=== PATIENT | male | born 1985 | race Asian ===

== ENCOUNTER 2019-08-04 01:44 | Emergency (ER) | payer OTHER ==
[2019-08-04 02:12] LABS: BASOPHILS % (AUTO) 0.7 %; EOSINOPHILS # (AUTO) 0.3 10^3/uL (0.0-0.7); EOSINOPHILS % (AUTO) 4.8 %; HGB - HEMOGLOBIN 16.2 g/dL (14.0-18.0); LYMPHOCYTES # (AUTO) 2.5 10^3/uL (1.5-3.5); LYMPHOCYTES % (AUTO) 42.5 %; MEAN CORPUSCULAR HEMOGLOBIN 30.4 pg (27.0-31.0); MEAN CORPUSCULAR HGB CONC 34.4 g/dL (32.0-36.0); MEAN CORPUSCULAR VOLUME 88.4 fL (80.0-94.0); MONOCYTES # (AUTO) 0.6 10^3/uL (0.0-1.0); MONOCYTES % (AUTO) 9.5 %; NEUTROPHILS # (AUTO) 2.5 10^3/uL (1.5-6.6); NEUTROPHILS % (AUTO) 42.3 %; PLT - PLATELET COUNT 216 10^3/uL (130-450); RED BLOOD COUNT 5.33 10^6/uL (4.70-6.10); RED CELL DISTRIBUTION WIDTH 11.9 % (12.0-15.0); WHITE BLOOD COUNT 5.9 x10^3/uL (4.8-10.8)
[2019-08-04 02:21] LABS: ALBUMIN 4.5 g/dL (3.2-5.5); ALBUMIN/GLOBULIN RATIO 1.4 (1.0-2.2); BILIRUBIN,TOTAL 0.7 mg/dL (0.2-1.0); CALCIUM 9.2 mg/dL (8.5-10.3); CREATININE 1.5 mg/dL (0.6-1.2); TOTAL PROTEIN 7.7 g/dL (6.7-8.2)
--- NOTE | 2019-08-04 02:38 | ED Physician Documentation ---
PD HPI FOCAL NEURO - Stated complaint Stated Complaint: CP/NUMB L SIDE OF BODY - Chief complaint Chief Complaint: Neuro - History obtained from History obtained from: Patient - History of Present Illness Timing - onset: How many minutes ago (45) Timing - duration: Minutes (45) Timing - details: Abrupt onset, Now resolved (Symptoms are mostly resolved with just some mild chest discomfort but on route and arriving to the ER he is developing a little bit of a headache.) Severity of deficit: Moderate (He states he was resting and developed onset of symptoms in which he could hear his talking and wanted to respond but felt he was unable to talk. This lasted for a couple of minutes. He then developed feeling of a left-sided chest pain which he described as sharp and aching in the left upper chest radiating to the left neck and associated with onset of weakness and numbness of the left arm and leg and his says the left side of his face seemed a little droopy as well. This also lasted a few minutes and then decreased. He was feeling normal movement of his arm his leg on route to the hospital. He did develop some headache just on arrival here.) Weakness: Face, Arm, Leg, Left Numbness: No: Face, Arm, Leg Associated symptoms: Headache (developed moderate on arrival to ER, did not have [place] initially) Contributing factors: negative: Anticoagulated, Atrial fibrillation Baseline status: positive: A&OX3, ambulatory, indep Similar symptoms before: Has not had sx before (He does have history of intermittent migraines which he states feels different than the current headache that he has. 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 denies: Near syncope, Head injury, LOC PD PAST MEDICAL HISTORY - Past Medical History Past Medical History: No - Past Surgical History Past Surgical History: No - Present Medications Home Medications: Ambulatory Orders Medication Instructions Recorded Confirmed No Known Home Medications 12/29/19 12/29/19 - Allergies Allergies/Adverse Reactions: Allergies Allergy/AdvReac Type Severity Reaction Status Date / Time No Known Drug Allergies Allergy Verified 08/04/19 02:03 - Social History Does the pt smoke?: Yes Smoking Status: Current every day smoker Does the pt drink ETOH?: Yes ETOH Use: Liquor Does the pt have substance abuse?: No - Immunizations Immunizations are current?: Yes - POLST Patient has POLST: No PD ED PE NORMAL - Vitals Vital signs reviewed: Yes - General General: Alert and oriented X 3, No acute distress, Well developed/nourished - HEENT HEENT: PERRL, EOMI, Pharynx benign - Neck Neck: Supple, no meningeal sign, No adenopathy, No bruit - Cardiac Cardiac: RRR, No murmur - Respiratory Respiratory: Clear bilaterally - Back Back: No CVA TTP - Derm Derm: Normal color, Warm and dry - Extremities Extremities: No tenderness to palpate, Normal ROM s pain, No edema, No calf tenderness / cord - Neuro Neuro: Alert and oriented X 3, 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, No motor deficit, No sensory deficit, Normal speech Eye Opening: Spontaneous Motor: Obeys Commands Verbal: Oriented GCS Score: 15 Results - Vitals Vitals: Vital Signs - 24 hr 08/04/19 08/04/19 08/04/19 01:47 02:39 03:07 Temperature 36.6 C Heart Rate 67 78 64 Respiratory 14 20 21 Rate Blood Pressure 153/65 H 142/75 H 132/87 H Blood Pressure 143/91 H [Left] Blood Pressure 153/65 H [Right] O2 Saturation 99 98 97 08/04/19 08/04/19 08/04/19 03:44 04:25 04:45 Temperature Heart Rate 66 49 L 57 L Respiratory 15 16 18 Rate Blood Pressure 132/70 H 114/87 H 110/64 Blood Pressure [Left] Blood Pressure [Right] O2 Saturation 99 96 97 Oxygen O2 Source Room air - EKG (time done) 01:48 Rate: Rate (enter#) (65) Rhythm: NSR [place]: Normal Intervals: Normal [place] QRS: Normal Ischemia: Normal ST segments, ST elevation c/w repol. No: ST elevation c/w ischemia, ST depression - Labs Labs: Laboratory Tests 08/04/19 08/04/19 08/04/19 01:55 01:55 01:55 WBC 5.9 RBC 5.33 Hgb 16.2 Hct 47.1 MCV 88.4 MCH 30.4 MCHC 34.4 RDW 11.9 L Plt Count 216 MPV 9.0 Neut # (Auto) 2.5 Lymph # (Auto) 2.5 [place] # (Auto) 0.6 Eos # (Auto) 0.3 Baso # (Auto) 0.0 Absolute Nucleated RBC 0.00 Nucleated RBC % 0.0 ESR 3 Sodium 136 Potassium 3.6 Chloride 100 L Carbon Dioxide 29 Anion Gap 7.0 BUN 22 H Creatinine 1.5 H Estimated GFR (MDRD) 53 L Glucose 103 H Calcium 9.2 Total Bilirubin 0.7 AST 31 ALT 37 Alkaline Phosphatase 78 Troponin I High Sens Total Protein 7.7 Albumin 4.5 Globulin 3.2 Albumin/Globulin Ratio 1.4 Lipase 44 08/04/19 01:55 WBC RBC Hgb Hct MCV MCH MCHC RDW Plt Count MPV Neut # (Auto) Lymph # (Auto) [place] # (Auto) Eos # (Auto) Baso # (Auto) Absolute Nucleated RBC Nucleated RBC % ESR Sodium Potassium Chloride Carbon Dioxide Anion Gap BUN Creatinine Estimated GFR (MDRD) Glucose Calcium Total Bilirubin AST ALT Alkaline Phosphatase Troponin I High Sens 3.6 Total Protein Albumin Globulin Albumin/Globulin Ratio Lipase - Rads (name of study) chest CTA Radiology: Prelim report reviewed (no vascular abnormality. Lungs normal as well. ), See rad report neck angio Radiology: Prelim report reviewed, See rad report PD MEDICAL DECISION MAKING - ED course Complexity details: considered differential (Given the onset of chest pain into the neck associated with weakness of the arm and leg, I would be concern for vascular abnormality of the aorta and carotid. His symptoms have him proved and is now developing some mild headache without any neurologic symptoms. He does have history of migraines. Alternatively this could be a atypical complex migraine with hemiplegia. 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 No signs of aortic or carotid vascular abnormalities. No signs of heart attack. No signs of stroke. Without signs of a more significant process on you r tests and given your history of some migraines in the past, this may have been a unusual type of migraine called a hemiplegic migraine. Usual activity and stay well-hydrated. Follow-up with your primary care in the next few days. Return if recurrent symptoms. Discharge Date/Time: 08/04/19 05:10
[2019-08-04] MEDS ORDERED: SODIUM CHLORIDE 0.9% 1,000 ML IV ONE (02:54)
[2019-08-04] MEDS ORDERED: KETOROLAC 15 MG/ML VIAL IVP STA (02:54)
[2019-08-04] MEDS ORDERED: IOVERSOL 320 100 ML VIAL IVP ONE ×3 (03:03→03:59)
--- NOTE | 2019-08-04 04:25 | CT Report ---
Reason: chest pain Procedure Date: 08/04/2019 Accession Number: [id number] / [id number] Procedure: CT - ANGIO CHEST W/WO CPT Code: Final Report FULL RESULT: EXAM: CT ANGIOGRAM CHEST EXAM DATE: 08/04/2019 03:56 AM. CLINICAL HISTORY: Chest pain. Left-sided numbness with chest pain and neck pain which started at 1 AM. COMPARISON: None. TECHNIQUE: Axial helical multidetector images were acquired before and after intravenous contrast. IV contrast: Optiray 320 100 mL. Reconstructions: Coronal, sagittal, and 3D MIP reconstructions of the aorta. FINDINGS: Vascular Structures: Normal. No aneurysm, dissection, or significant atherosclerotic disease of the thoracic aorta. The visualized pulmonary arteries are within normal limits. Slight narrowing of the celiac axis at the level of the diaphragmatic bret. Lungs/Pleura: No consolidation, nodules, or edema. No effusions or pneumothorax. Mediastinum: Normal. No cardiac enlargement or adenopathy. Upper Abdomen: No acute abnormality. Other: None. IMPRESSION: 1. Normal appearance of the aorta. No pulmonary embolism. No acute pulmonary abnormality. 2. Narrowing of the celiac axis at the level of the diaphragmatic bret. This is incidental and could be transient. There is no critical stenosis of the SMA. RADIA
--- NOTE | 2019-08-04 04:39 | CT Report ---
Reason: L sided facial droop, L neck pain Procedure Date: 08/04/2019 Accession Number: [id number] / [id number] Procedure: CT - ANGIO NECK W CPT Code: Final Report FULL RESULT: EXAM: CT ANGIOGRAM NECK EXAM DATE: 08/04/2019 03:54 AM. CLINICAL HISTORY: L sided facial droop, L neck pain. COMPARISON: None. TECHNIQUE: Routine axial helical imaging was performed from the skull base through the aortic arch. Reconstructions: Routine multiplanar 3D MIP reconstructions. IV Contrast: OPTI 320 100ML. Evaluation of arterial stenosis is based on a NASCET method of measurement. In accordance with CT protocol optimization, one or more of the following dose reduction techniques were utilized for this exam: automated exposure control, adjustment of mA and/or KV based on patient size, or use of iterative reconstructive technique. FINDINGS: Aortic arch, origins of the great vessels, brachiocephalic in both subclavian arteries are patent and unremarkable. Right Carotid: The common carotid, internal carotid, and external carotid arteries are widely patent. No dissection, significant atherosclerotic plaque, or calcification identified. Left Carotid: The common carotid, internal carotid, and external carotid arteries are widely patent. No dissection, significant atherosclerotic plaque, or calcification identified. Vertebrals: Vertebral arteries are patent throughout the neck. Right is slightly larger than the left. Intracranial Circulation: Normal. No stenoses or aneurysms of the visualized vessels. Other: The bones, soft tissues, and lung apices show no significant abnormality. IMPRESSION: 1. No carotid or vertebral artery stenosis in the neck. No findings concerning for dissection. RADIA
[2019-08-04 04:46] VITALS: BP 110/64
== END 2019-08-04 05:10 | disposition home or self-care (01) ==
LOC: ED 01:44
DX: G43.409 Hemiplegic migraine, not intractable, without status migrainosus (principal); R07.2 Precordial pain; F17.200 Nicotine dependence, unspecified, uncomplicated
CPT/HCPCS: 36415; 70498; 71275; 80053; 83690; 84484; 85025; 85651; 93005; 96361; 96374; 99284; Q9967

== ENCOUNTER 2020-03-31 15:18 | Outpatient (CLI) | payer OTHER ==
[2020-03-31 15:59] VITALS: BP 100/62
--- NOTE | 2020-03-31 15:59 | SLEEP CARE CONSULTATION ---
Information from patient questionnaire entered by Rekha Moreau. I have reviewed and concur with the information entered by Rekha Moreau. This document represents the service I personally performed and the decisions made by me, Sussy Nash ARNP. History of Present Illness Service Date and Time: 03/31/2020 1518 Reason for Visit: New patient Chief Complaint: reports: Insomnia (hard to fall asleep), Unrefreshed sleep, Snoring, Excessive daytime sleepiness, Observed pauses in breathing ( tells him it sounds like he is gargling while sleeping), Fatigue, Frequent awakenings at night. denies: Other Date of Onset: 5 years Usual bedtime: [id number] Time it takes to fall asleep: 30-60 minutes Snores at night: Yes Observed to quit breathing while asleep: Yes Sleeps alone due to snoring: No Number of times waking at night: 3-4 Reasons for waking at night: reports: Choking, Snoring, Gasping for air. denies: Pain, Bathroom, Other Toss, Turn, or Twitch while sleeping: Yes ( states he moves around a lot) Recalls having dreams: No Usually gets out of bed at: 0430 Feels refreshed in the morning: No Morning headache: Yes (2-3 times a week; gone in an hour) Sleepy or fatigued during the day: Yes Ever fallen asleep while driving: Yes (couple times dozed off on long trips) Takes day naps: No Dreams during day naps: No Prior sleep studies: No Additional HPI information: I had the pleasure of seeing PILI JOHNSTON today regarding the possibility of him having a sleep disorder. His current complaints are loud snoring, unrefreshed sleep, fatigue, frequent night awakenings, insomnia and excessive daytime sleepiness. His father was diagnosed with sleep apnea but he is not sure if her was treated or not. He has a history of anxiety, depression and occasional heartburn. - Parasomnia Symptoms Ever been unable to move upon waking from sleep: Yes (once) Walks in sleep: No Talks in sleep: Yes Ever acted out dreams in sleep: No Ever felt weak in the knees when startled or emotional: No Bothered by creepy, crawly, restless sensations in legs: Yes (twice a week) Problems with memory or concentration: No Subjective Initial [place] Sleepiness Scale score: 17 Past Medical History Past Medical History: reports: Depression, Mood disorder (depression), GERD. 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 Patient is and lives in [place]. Have you smoked in the past 12 months: Yes Cigarettes per day (20/pack): 5 Years of smokin Smoking Pack Years: 3.4 Alcohol use: Yes Alcohol amount and frequency: 2, once/week Caffeine use: Yes Caffeine amount and frequency: once/day Family History Family history of sleep disordered breathing: Yes Family Hx Sleep Apnea: Father: Snoring (FRANCISCA dx, unsure if treated) Allergies and Home Medications Drug allergies reviewed: Yes (NKDA) Home medication list reviewed: Yes (none) Review of Systems Weight gain over past 5 years: 3 Cardiovascular: reports: chest pain (with some physical exertion; having appt with his doctor for evaluation). denies: high blood pressure, palpitations, irregular heart rate or pulse, leg or foot swelling, have to sleep sitting up Respiratory: denies: shortness of breath, chronic cough Gastrointestinal: reports: heartburn. denies: difficulty swallowing Urinary: denies: impotence Neurological: reports: headaches. denies: seizure, head trauma, speech dysfunction, gait or balance problems Psychiatric: reports: anxiety, depression. denies: Attention Deficit Hyperactivity, mood disorder, claustrophobia Ear/Nose/Throat: reports: nasal congestion, wisdom teeth removed (two removed). denies: sinus problems, nose bleeds, dry mouth/throat, hoarseness, injury to nose, tonsillectomy Endocrine: denies: thyroid disease Musculoskeletal: reports: back pain. denies: muscle pain or cramping, mobility problems Immunologic: denies: allergies to food or environment (pollen) Physical Exam Blood Pressure: 100/62 Cuff size: regular Heart Rate: 59 O2 Saturation: 97 Height: 5 ft 11 in Weight: 173 lb Body Mass Index: 24.1 BMI Classification: Healthy weight Neck circumference: 14.75 (inches) HEENT: No craniofacial malformation Nostrils: patent to airflow Turbinates: normal Septum: deviated right Mouth and throat: narrow oropharynx Soft palate: normal Hard palate: normal Uvula: normal Uvula visualization: 25% Mallampati Class III Tongue: normal in size Tonsils: 1+ Chin and jaw: normal size and position Neck: normal w/o lymphadenopathy or thyromegaly Heart: regular rate and rhythm Lungs: clear bilaterally Impression and Plan 1. Suspected Obstructive Sleep Apnea-Hypopnea Syndrome, as suggested by a history of loud and irregular snoring, observed cessation of breath while as leep, gasping or choking in sleep, morning headache, frequent awakening during the night, unrefreshed sleep, and excessive daytime sleepiness. Narrow oropharynx and obesity are common predisposing factors for obstructive sleep apnea-hypopnea syndrome. I recommend proceeding to polysomnography to confirm the diagnosis and to assess severity. If the patient has significant sleep disordered breathing, a manual CPAP titration study will also be performed to find the optimal treatment pressure. I informed the patient of what the sleep studies involve and after some discussion, obtained agreement to proceed. The pathophysiology of obstructive sleep apnea-hypopnea syndrome was discussed with the patient and health risks of cardiovascular and cerebrovascular disease if not treated. AAS brochure for obstructive sleep apnea-hypopnea syndrome given and reviewed. Risks of drowsy driving discussed in detail and patient advised to avoid long distance driving and to pulley maintainer at the first sign of drowsiness. Patient agreed to plan. * Schedule polysomnography +- manual CPAP titration study. * Avoid long distance driving or driving when feeling sleepy. * Avoid alcohol, sedative and muscle relaxant around bedtime. * Attempt to lose weight. * Review instructions provided by trained office staff on how to prepare for the sleep study. * Return for follow-up after sleep study completed. Visit Type: In Office Time Spent with Patient (minutes): 35 Provider Statement: I spent 100% of the Face to Face Visit with the patient with greater than 50% spent counseling the patient and coordination of care.
== END 2020-03-31 15:19 | disposition home or self-care (01) ==
LOC: SC 15:18
PROVIDERS: ATTEND Nurse Practitioner Family
DX: R06.83 Snoring (principal); G47.10 Hypersomnia, unspecified; G47.8 Other sleep disorders; R51 Headache; R06.81 Apnea, not elsewhere classified; F17.210 Nicotine dependence, cigarettes, uncomplicated
CPT/HCPCS: 99204; 99212

== ENCOUNTER 2020-05-04 19:30 | Outpatient (CLI) | payer OTHER | END 2020-05-04 19:31 | disposition home or self-care (01) | LOC: SC 19:30 | PROVIDERS: ATTEND Nurse Practitioner Family | DX: R06.83 Snoring (principal); G47.10 Hypersomnia, unspecified; G47.8 Other sleep disorders; R51 Headache; R06.81 Apnea, not elsewhere classified | CPT/HCPCS: 95810 ==

== ENCOUNTER 2020-05-13 15:16 | Outpatient (CLI) | payer OTHER ==
--- NOTE | 2020-05-13 15:32 | SLEEP CARE CONSULTATION ---
Information from patient questionnaire entered by Piter Pacheco. I have reviewed and concur with the information entered by Piter Pacheco. This document represents the service I personally performed and the decisions made by , Sussy Nash ARNP. History of Present Illness Service Date and Time: 05/13/2020 151 Initial [place] Sleepiness Scale score: 17 (in 2020) Current [place] Sleepiness Scale score: 15 Additional HPI information: PILI JOHNSTON returns for follow up and results of the recently performed polysomnography. The patient was informed of the following findings: no significant sleep disordered breathing. I explained the pathophysiology behind obstructive sleep apnea. Patient does not have sleep apnea and was advised how weight gain could increase the risk of developing sleep apnea in the future. Patient has light snoring. Snoring can be reduced by weight loss. Weight loss is best achieved with diet consult. Patient instructed to contact PCP for referral. Snoring can also be treated with an oral appliance from a dentist. Advised to check insurance coverage. In addition, an ENT evaluation can be do to see if other treatment is indicated. Patient counseled not drink alcohol less than 4 hours before bedtime as it can increase snoring and apnea. Patient was cautioned about risks of drowsy driving until sleepiness symptoms resolve. Sleep Study - Results Type of Sleep Study: Polysomnography Polysomnography/Home Sleep Study results: IMPRESSION: The quality of the study is good. The patient had normal sleep efficiency. The sleep architecture was relatively normal as well considering the first night effect. Respiratory monitoring showed no significant sleep disordered breathing (AHI = 0.4) or hypoxia ([place] oxygen saturation of 92%). The patient slept adequately in supine position (supine AHI = 0.8; non-supine = 0.00). Snore was light in intensity. There was no significant periodic leg movement of sleep. Cardiac rhythm was normal sinus rhythm without significant arrhythmia. No abnormal behavior (parasomnia) observed during the night. Allergies and Home Medications Drug allergies reviewed: Yes (NKDA) Home medication list reviewed: Yes (no changes) Review of Systems Review of systems same as previous: Yes (no changes) Physical Exam Heart Rate: 82 O2 Saturation: 98 Height: 5 ft 11 in Weight: 175 lb Body Mass Index: 24.4 BMI Classification: Healthy weight Impression and Plan Snoring but no significant sleep disordered breathing. Patient advised that often weight loss will reduce snoring as well as apnea risk. An oral appliance can also be used for snoring. This would require a dental consultation. Patient cautioned not to use other online appliances as can cause bite issues. A list of accredited dentists in area and one local dentist who makes oral appliances given. Patient is advised to check if insurance will cover. An ENT consult can also be helpful to determine if any other treatment is an option. * Attempt to lose weight * Avoid alcohol consumption near bedtime * The patient is cautioned about driving until sleepiness is completely resolved. * Return as needed for worsening symptoms or change in symptoms. Counseling Topics: Weight control Visit Type: In Office Time Spent with Patient (minutes): 16 Provider Statement: I spent 100% of the Face to Face Visit with the patient with greater than 50% spent counseling the patient and coordination of care.
== END 2020-05-13 15:17 | disposition home or self-care (01) ==
LOC: SC 15:16
PROVIDERS: ATTEND Nurse Practitioner Family
DX: R06.83 Snoring (principal)
CPT/HCPCS: 99212

== ENCOUNTER 2020-10-21 09:20 | Emergency (ER) | payer OTHER ==
--- NOTE | 2020-10-21 09:52 | ED Physician Documentation ---
History of Present Illness - Stated complaint Stated Complaint: LOW BACK PX - Chief complaint Chief Complaint: Trauma Ch/Bk - History obtained from History obtained from: Patient - Additonal information Additional information: Patient comes emergency department chief complaint of left posterior rib pain after falling down the stairs. Patient states he just put on new socks and that his stairs are vinyl. He was hurrying down the stairs to get to work, when he slipped. He states he fell with his full weight onto the stairs and impacted his left mid back over the ribs. He states that he slid down several more stairs. He never hit his head. He denies neck pain. He states the only place he really felt as though he got hurt was over his left back. Patient states this happened about 45 minutes ago. No numbness or tingling in his extremities. No loss of consciousness. No abdominal pain or anterior chest pain. He states it hurts to take a deep breath, but that he does not feel short of air. No other complaints at this time. Review of Systems Ten Systems: 10 systems reviewed and negative Constitutional: reports: Reviewed and negative Eyes: reports: Reviewed and negative Ears: reports: Reviewed and negative Nose: reports: Reviewed and negative Throat: reports: Reviewed and negative Cardiac: reports: Reviewed and negative Respiratory: reports: Reviewed and negative GI: reports: Reviewed and negative : reports: Reviewed and negative Skin: reports: Reviewed and negative Musculoskeletal: reports: Back pain, Reviewed and negative Neurologic: reports: Reviewed and negative Psychiatric: reports: Reviewed and negative Endocrine: reports: Reviewed and negative Immunocompromised: reports: Reviewed and negative PD PAST MEDICAL HISTORY - Past Medical History Past Medical History: Yes Cardiovascular: None Respiratory: None Neuro: Headaches, Migraines Endocrine/Autoimmune: None GI: None : None HEENT: None Psych: None Musculoskeletal: None Derm: None - Past Surgical History Past Surgical History: No - Present Medications Home Medications: Ambulatory Orders Medication Instructions Recorded Confirmed HYDROcod/ACETAM 5/325 [[place] 5/325] 1 - 2 ea PO Q6H PRN #20 tablet 10/21/20 - Allergies Allergies/Adverse Reactions: Allergies Allergy/AdvReac Type Severity Reaction Status Date / Time No Known Drug Allergies Allergy Verified 10/21/20 09:23 - Social History Does the pt smoke?: Yes Smoking Status: Current every day smoker Does the pt drink ETOH?: Yes Does the pt have substance abuse?: No - Immunizations Immunizations are current?: Yes - POLST Patient has POLST: No PD ED PE NORMAL - Vitals Vital signs reviewed: Yes - General General: Alert and oriented X 3, No acute distress, Well developed/nourished - HEENT HEENT: Atraumatic, PERRL, EOMI, Moist mucous membranes - Neck Neck: Supple, no meningeal sign, No bony TTP - Cardiac Cardiac: RRR, No murmur, Strong equal pulses - Respiratory Respiratory: No respiratory distress, Clear bilaterally - Abdomen Abdomen: Soft, Non tender, Non distended - Back Back: No spinal TTP, Other (Moderate tenderness over posterior inferior left ribs from the level of 11th rib to approximately seventh rib. No crepitus or step-off. No soft tissue swelling.) - Derm Derm: Warm and dry - Extremities Extremities: No deformity - Neuro Neuro: Alert and oriented X 3 - Psych Psych: Normal mood, Normal affect Results - Vitals Vitals: Vital Signs - 24 hr 10/21/20 10/21/20 09:23 10:34 Temperature 36.9 C 37.1 C Heart Rate 65 57 L Respiratory 20 18 Rate Blood Pressure 119/78 123/73 O2 Saturation 98 99 Oxygen O2 Source Room air - Rads (name of study) L rib and chest XR series Radiology: Final report received, EMP read indepedently, See rad report (nondisplaced L 11th rib fx) PD MEDICAL DECISION MAKING - ED course Complexity details: reviewed results, re-evaluated patient, considered differential, d/w patient ED course: Patient was evaluated with x-ray of the left ribs and chest, which showed a L 11th rib nondisplaced fracture. We have discussed symptomatic management at home and the need to take deep breaths to prevent pneumonia. We have discussed the timeline for symptoms and rib healing. We have discussed light duty at work for the next few weeks, and I have written a work note to this and. We discussed the usual indications for return. Departure - Departure Disposition: 01 Home, Self Care Clinical Impression: Left rib fracture Qualifiers: Encounter type: initial encounter Rib fracture type: single rib Fracture type: closed Qualified Code(s): S22.32XA - Fracture of one rib, left side, initial encounter for closed fracture Condition: Stable Instructions: ED Fx Rib Prescriptions: HYDROcod/ACETAM 5/325 [[place] 5/325] 1 - 2 ea PO Q6H PRN #20 tablet PRN Reason: Pain Comments: Your x-ray shows that you have broken your left 11th rib. There is no evidence of injury to your lung from this. Like any break, it will take several weeks for the rib to heal back together solidly. The healing process will continue for months after this, though, and you may have an occasional bit of pain from it. Since there is no way to cast a rib, the rib will simply have to heal on its own with normal body processes occurring. You should avoid any strenuous activity for the next several weeks, as well as any activity where you were at risk of hard contact to the area. You should focus on breathing deeply several times an hour to be sure that you are aerating your lungs well, is one of the most common complications of a rib fracture is pneumonia from not breathing deeply enough. You may take the pain medication prescribed as needed. Forms: Activity restrictions Discharge Date/Time: 10/21/20 10:39
--- NOTE | 2020-10-21 10:12 | XRAY Report ---
PROCEDURE: Ribs w/PA Chest LT INDICATIONS: trauma/rib pain TECHNIQUE: 2 views of the left ribs were acquired, along with a single view chest. COMPARISON: None FINDINGS: Surgical changes and devices: None. Bones and chest wall: Subtle minimally displaced fracture involving left posterior 11th rib is seen b est seen on oblique view. No suspicious bony lesions. Overlying soft tissues appear unremarkable. Lungs and pleura: No pleural effusions or pneumothorax. Lungs appear clear. Mediastinum: Mediastinal contours appear normal. Heart size is normal. IMPRESSION: Minimally displaced left posterior 11th rib fracture. No acute cardiopulmonary pathology. Reviewed by: Jorge Wright MD on 10/21/2020 10:10 AM PDT Approved by: Jorge Wright MD on 10/21/2020 10:10 AM PDT Station ID: [id number]
[2020-10-21 10:35] VITALS: BP 123/73
== END 2020-10-21 10:39 | disposition home or self-care (01) ==
LOC: ED 09:20
DX: S22.32XA Fracture of one rib, left side, initial encounter for closed fracture (principal); W10.9XXA Fall (on) (from) unspecified stairs and steps, initial encounter; Y93.89 Activity, other specified; F17.200 Nicotine dependence, unspecified, uncomplicated
CPT/HCPCS: 99283; 99284